=== PATIENT | male | born 1990 | race Caucasian/White ===

== ENCOUNTER 2024-04-17 04:06 | Emergency (ER) | payer OTHER, SELFPAY ==
[2024-04-17 04:15] VITALS: BP 138/93
[2024-04-17 04:27] VITALS: BMI 23.5
--- NOTE | 2024-04-17 04:41 | ED.GENMED ---
History of Present Illness
General
Chief Complaint: Flank Pain
Source: patient and significant other
Time Seen by Provider: 04/17/24 04:36
History of Present Illness
History of Present Illness:
33-year-old male presents emergency department with complaints of pain in the left flank radiating to the left mid abdominal area beginning at 3 AM. Since arrival, pain is gone completely away. With the pain, was described as 'stabbing', with
associated nausea but no vomiting, fever, chills, chest pain, dyspnea. He denies dysuria urgency frequency retention or hematuria. He denies other complaints.
Past History
Past History
ED Past Medical History: Psychiatric
ED Past Surgical History: None
Social History
Tobacco: Non-smoker
Alcohol: None
Drug: None
Personal: Single
Living: with family
Phy Exam
Physical Exam
Physical Exam:
GENERAL: Alert , in no apparent distress
EYE: pupils equal and reactive
NECK: Supple, no significant adenopathy.
ENT: o/p clr, mmm.
CARDIAC: Regular rate and rhythm .
LUNGS: Clear breath sounds bilaterally, no acute respiratory distress, no wheezes/rales/rhonchi
ABDOMEN: Soft, without focal tenderness, no r/g, no cvat
NEUROLOGICAL: Alert and oriented, no focal neuro deficits
SKIN: Warm and dry, skin intact.
MUSCULOSKELETAL: No edema, well perfused.
PSYCH: Normal and appropriate interaction.
Course
Orders/Labs/Results
Orders:
Orders
04/17/24 04:31
Urinalysis Reflex To Culture Urgent
Date Specimen was Collected: 04/17/24
Time Specimen was Collected: 04:26
Urine Microscopic Reflex Cult Urgent
Urine Culture Urgent
EMELIA Source: U
Specimen Description:
Date Specimen was Collected: 04/17/24
Time Specimen was Collected: 04:26
04/17/24 04:41
CT Abd/pel Without Iv Or Oral Urgent
Comment:
Reason For Exam: l flank pain
0.9% Sodium Chloride 1000 ml [Nss] 1,000 ml IV BOLUS
Ketorolac [Toradol] 15 mg IV NOW STA
04/17/24 04:58
Basic Metabolic Panel Urgent
Complete Blood Count/No Diff Urgent
Abnormal Lab Results
04/17/24 04/17/24
04:31 04:58
RBC 4.33 L 10^6/uL
(4.70-6.10)
Hct 35.7 L %
(39.0-52.0)
Ur Occult Blood Reflex 4+ A
(Negative)
Leukocyte Esterase Rfl Trace A
(Negative)
Urine RBC >100 A /HPF
(0-2)
Urine Bacteria (Reflex) Many A
(Negative)
04/17/24 04:58
04/17/24 04:58
Vital Signs
Initial and Last Documented VS:
Initial Vital Signs
Temp Pulse Resp BP Pulse Ox
98.3 F 67 20 138/93 96
04/17/24 04:15 04/17/24 04:15 04/17/24 04:15 04/17/24 04:15 04/17/24 04:15
Last Documented Vital Signs
Temp Pulse Resp BP Pulse Ox
98.3 F 67 20 138/93 96
04/17/24 04:15 04/17/24 04:15 04/17/24 04:15 04/17/24 04:15 04/17/24 04:15
*Critical Care Note
Total Time (30-74mins, 75-104mins- exclusive of procedures): Not Applicable
Update Note
Update Note:
Patient presents to the Emergency Department with ___left flank pain
Number and Complexity of Problems Addressed at the Encounter
� Chronic conditions affecting care:
� Acute Exacerbation and/or Progression of Chronic Illness:
� Differential Diagnosis includes: But not limited to muscular strain, kidney stone, pyelonephritis, etc.
Amount and/or Complexity of Data to be Reviewed and Analyzed
� I performed an independent evaluation of and my interpretation is:
EKG:
CT: Vision report bladder wall thickening no obstructing renal stone correlate with urinalysis appendix normal no bowel obstruction, hepatic steatosis
Xrays:
Laboratory Studies:
Other:
� Review of other/old records reveals:
� Clinical information was obtained by an independent historian: Significant other who is bedside
� Prescriptions/Medications Considered but not given:
� Further testing considered but not performed:
Risk of Complications and/or Morbidity or Mortality of Patient Management
� Social determinants of health affecting care:
� Discussion with other providers (PCP, Hospitalists, Consultants, etc):
� Escalation of care including admission/observation vs risk of discharge considered: Patient remains completely pain-free here, smiling, in no acute distress. Clinically, given the quality and history of his pain with abrupt
resolution, microscopic hematuria, and family history of kidney stones I a passed kidney stone it is the most likely etiology of his symptoms. No other potential cause noted in workup here. Recommend patient return the emergency department if he
develops further symptoms.
ED Attending Note
-
Portions of this chart may have been created with voice recognition software.� Occasional wrong word or��sound alike� substitutions may have occurred due to the inherent limitations of voice recognition software.
Discharge Plan
Departure
Patient Disposition: Home (Routine Discharge)
Date of Disposition: 04/17/24
Time of Disposition: 06:45
Patient with high blood pressure during this ER visit?: Yes
Condition: Good
Discharge Problem:
Flank pain
Instructions: Flank Pain (DC), BLOOD PRESSURE
Referrals:
Abiel Johnson MD [Family Provider] - Follow up in 2-3 days
Activity Restrictions/Additional Instructions:
IF YOU DEVELOP FEVER, CHILLS, FLANK PAIN, ABDOMINAL PAIN, NAUSEA, VOMITING, PAIN WITH URINATION, TROUBLE URINATING, OR OTHER WORRISOME SIGNS, PLEASE RETURN TO THE ER IMMEDIATELY. YOU HAD MICROSCOPIC BLOOD NOTED IN YOUR URINE TODAY, THIS REQUIRES
FOLLOW-UP WITH YOUR DOCTOR SHORTLY.
Interventions
Interventions:
*Risk Screen - Suicide Last Done: 04/17/24 04:15
*General Assessment Last Done: 04/17/24 04:15
*Neglect/Abuse Screening Last Done: 04/17/24 04:15
ED- Fall Risk Assessment Last Done: 04/17/24 04:15
*ED COVID-19 Vaccine History Last Done: 04/17/24 04:15
MZ-Jumpcg-Mzqdzaxuwi Assessment Last Done: 04/17/24 04:27
ED-Male Genitourinary Assessment Last Done: 04/17/24 04:27
Discharge Date and Time
Print Language: PASHTO
[2024-04-17] MEDS: TORADOL 15 MG IV (04:45)
[2024-04-17 04:55] LABS: Urine Albumin Trace (Neg - Trace); Urine Bilirubin Negative (Negative); Urine Character Slightly Cloudy (Clear); Urine Color Yellow; Urine Glucose Negative (Negative); Urine Ketone Negative (Negative); Urine Leukocyte Trace (Negative); Urine Nitrite Negative (Negative); Urine Occult Blood 4+ (Negative); Urine Urobilinogen Negative (Neg - 1+)
[2024-04-17] MEDS: NSS 1000 IV (04:55)
[2024-04-17 05:05] LABS: Hematocrit 35.7 % (39.0-52.0); Mean Corp Hgb Conc. 36.4 g/dL (33.0-37.0); Mean Corpuscular Volume 82.4 fL (80.0-94.0); Mean Platelet Volume 9.3 fL (7.4-10.4); Platelet Count 215 10^3/uL (130-400); Red Blood Cell Count 4.33 10^6/uL (4.70-6.10); Red Cell Dist. Width 12.4 % (11.5-14.5); White Blood Cell Count 7.2 10^3/uL (4.8-10.8)
[2024-04-17 05:14] LABS: Urine Amorphous Seen; Urine Mucus Many; Urine Red Blood Cell >100 /HPF (0-2); Urine Squamous Cell >30 /LPF (Few)
[2024-04-17 05:19] LABS: Blood Urea Nitrogen 12 mg/dl (9-20); Calcium 9.4 mg/dl (8.4-10.2); Carbon Dioxide 26 mmol/L (22-30); Chloride 105 mmol/L (98-107); Estimated Creatinine Clearance 100 ml/min; Glucose 94 mg/dl (70-99); Potassium 3.8 mmol/L (3.5-5.1); Sodium 138 mmol/L (135-145); eGFR > 60.00
[2024-04-17 05:20] LABS: Urine Bacteria Many (Negative); Urine Sperm Seen
[2024-04-17 05:22] LABS: Urine Calcium Oxalate Crystals Seen
--- NOTE | 2024-04-17 06:57 | ED.GENMED ---
History of Present Illness
General
Chief Complaint: Flank Pain
Time Seen by Provider: 04/17/24 04:36
Past History
Past History
ED Past Medical History: Psychiatric
ED Past Surgical History: None
Social History
Tobacco: Non-smoker
Alcohol: None
Drug: None
Personal: Single
Living: with family
Course
Orders/Labs/Results
Orders:
Orders
04/17/24 04:31
Urinalysis Reflex To Culture Urgent
Date Specimen was Collected: 04/17/24
Time Specimen was Collected: 04:26
Urine Microscopic Reflex Cult Urgent
Urine Culture Urgent
EMELIA Source: U
Specimen Description:
Date Specimen was Collected: 04/17/24
Time Specimen was Collected: 04:26
04/17/24 04:41
CT Abd/pel Without Iv Or Oral Urgent
Comment:
Reason For Exam: l flank pain
0.9% Sodium Chloride 1000 ml [Nss] 1,000 ml IV BOLUS
Ketorolac [Toradol] 15 mg IV NOW STA
04/17/24 04:58
Basic Metabolic Panel Urgent
Complete Blood Count/No Diff Urgent
Abnormal Lab Results
04/17/24 04/17/24
04:31 04:58
RBC 4.33 L 10^6/uL
(4.70-6.10)
Hct 35.7 L %
(39.0-52.0)
Ur Occult Blood Reflex 4+ A
(Negative)
Leukocyte Esterase Rfl Trace A
(Negative)
Urine RBC >100 A /HPF
(0-2)
Urine Bacteria (Reflex) Many A
(Negative)
04/17/24 04:58
04/17/24 04:58
Vital Signs
Initial and Last Documented VS:
Initial Vital Signs
Temp Pulse Resp BP Pulse Ox
98.3 F 67 20 138/93 96
04/17/24 04:15 04/17/24 04:15 04/17/24 04:15 04/17/24 04:15 04/17/24 04:15
Last Documented Vital Signs
Temp Pulse Resp BP Pulse Ox
98.3 F 67 20 138/93 96
04/17/24 04:15 04/17/24 04:15 04/17/24 04:15 04/17/24 04:15 04/17/24 04:15
ED Attending Note
-
Portions of this chart may have been created with voice recognition software.� Occasional wrong word or��sound alike� substitutions may have occurred due to the inherent limitations of voice recognition software.
Discharge Plan
Departure
Patient Disposition: Home (Routine Discharge)
Date of Disposition: 04/17/24
Time of Disposition: 06:45
Patient with high blood pressure during this ER visit?: Yes
Condition: Good
Discharge Problem:
Flank pain
Instructions: Flank Pain (DC), BLOOD PRESSURE
Referrals:
Abiel Johnson MD [Family Provider] - Follow up in 2-3 days
Activity Restrictions/Additional Instructions:
IF YOU DEVELOP FEVER, CHILLS, FLANK PAIN, ABDOMINAL PAIN, NAUSEA, VOMITING, PAIN WITH URINATION, TROUBLE URINATING, OR OTHER WORRISOME SIGNS, PLEASE RETURN TO THE ER IMMEDIATELY. YOU HAD MICROSCOPIC BLOOD NOTED IN YOUR URINE TODAY, THIS REQUIRES
FOLLOW-UP WITH YOUR DOCTOR SHORTLY.
Interventions
Interventions:
*Risk Screen - Suicide Last Done: 04/17/24 04:15
*General Assessment Last Done: 04/17/24 04:15
*Neglect/Abuse Screening Last Done: 04/17/24 04:15
ED- Fall Risk Assessment Last Done: 04/17/24 04:15
*ED COVID-19 Vaccine History Last Done: 04/17/24 04:15
OT-Nwgpcm-Fnlygtqdio Assessment Last Done: 04/17/24 04:27
ED-Male Genitourinary Assessment Last Done: 04/17/24 04:27
Discharge Date and Time
Print Language: CAMEROONIAN
[2024-04-17 07:05] VITALS: BP 125/89
== END 2024-04-17 07:07 | disposition home or self-care (01) ==
LOC: EMR 04:06
PROVIDERS: EMERGENCY PHYSICIAN Emergency Medicine; FAMILY PHYSICIAN Family Medicine
DX: R10.9 Unspecified abdominal pain (principal)
CPT/HCPCS: 99284; 96374; 96361; 74176; 80048; 81003; 81015; 85027; 87086